=== PATIENT | female | born 2005 | race Hispanic/Latino ===

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

== ENCOUNTER 2024-03-27 05:59 | Emergency (ER) | payer OTHER ==
[2024-03-27] MEDS ORDERED: Morphine 4 MG/ML VIAL ONE (06:30)
== END 2024-03-27 08:06 | disposition home or self-care (01) ==
LOC: ERS 05:59
DX: S02.2XXA Fracture of nasal bones, initial encounter for closed fracture (principal); S09.90XA Unspecified injury of head, initial encounter; S00.531A Contusion of lip, initial encounter; Y04.0XXA Assault by unarmed brawl or fight, initial encounter; Y93.89 Activity, other specified
CPT/HCPCS: 70486; 96372; J2272